=== PATIENT | male | born 1970 | race Caucasian/White ===

== ENCOUNTER 2019-10-13 08:59 | Emergency (ER) | payer OTHER ==
[2019-10-13] MEDS ORDERED: Lidocaine 1% with EPINEPHrine 1:100,000 10 ML MDV INJECT ONE (09:11)
[2019-10-13] MEDS ORDERED: Diphtheria,Pertussis(Acell),Tetanus Vaccine 0.5 ML Syringe IM ONE (09:11)
--- NOTE | 2019-10-13 09:26 | EDM.PDOC ---
ED HPI GENERAL MEDICAL PROBLEM - General Chief Complaint: Laceration Stated Complaint: RIGHT ARM LAC Time Seen by Provider: 10/13/19 09:05 Source of Information: Reports: Patient History Limitations: Reports: No Limitations - History of Present Illness INITIAL COMMENTS - FREE TEXT/NARRATIVE: The patient presents with a right arm laceration. He tripped and fell in his shop and fell and cut his right forearm. He denies any other injury. He thinks his tetanus is not up to date. Onset: Sudden Duration: Minutes: Location: Reports: Upper Extremity, Right (forearm) Quality: Reports: Sharp Severity: Moderate Improves with: Reports: None Worsens with: Reports: None Associated Symptoms: Reports: No Other Symptoms Right Arm Pain Score (Numeric/FACES): 4 - Related Data Allergies Allergy/AdvReac Type Severity Reaction Status Date / Time No Known Allergies Allergy Verified 10/13/19 09:09 Home Meds: Home Meds . [No Known Home Meds] 10/13/19 [History] ED ROS GENERAL - Review of Systems Review Of Systems: See Below Constitutional: Reports: No Symptoms HEENT: Reports: No Symptoms Respiratory: Reports: No Symptoms Cardiovascular: Reports: No Symptoms Endocrine: Reports: No Symptoms GI/Abdominal: Reports: No Symptoms : Reports: No Symptoms Musculoskeletal: Reports: Other (10 cm laceration to the right forearm) ED EXAM, SKIN/RASH Exam: See Below Exam Limited By: No Limitations General Appearance: Alert, No Apparent Distress Ears: Normal External Exam Nose: Normal Inspection Head: Atraumatic, Normocephalic Neck: Normal Inspection Respiratory/Chest: No Respiratory Distress, Lungs Clear, Normal Breath Sounds Cardiovascular: Regular Rate, Rhythm, No Edema, No Murmur GI/Abdominal: Soft, Non-Tender, No Organomegaly, No Mass Back Exam: Normal Inspection Extremities: Other (10 cm laceration to the right forearm. Good sensation and pulses distally.) ED SKIN PROCEDURES - Laceration/Wound Repair Right Arm Appearance: Subcutaneous, Linear, Clean Distal NVT: Neuro & Vascular Intact, No Tendon Injury Anesthetic Type: Local Local Anesthesia - Lidocaine (Xylocaine): 1% with EPI Skin Prep: Saline Exploration/Debridement/Repair: Wound Explored, In a Bloodless Field, Explored to Base Closed with: Sutures Lac/Wound length In cm: 10 Suture Size: 3-0 # of Sutures: 7 Suture Type: Nylon, Interrupted, Mattress Tetanus Status Addressed: Yes Complications: No Course - Vital Signs Last Recorded V/S: Last Vital Signs Temp 97.8 F 10/13/19 09:07 Pulse 73 10/13/19 09:07 Resp 16 10/13/19 09:07 BP 155/77 H 10/13/19 09:07 Pulse Ox 100 10/13/19 09:07 - Orders/Labs/Meds Orders: Active Orders 24 hr Category Date Time Status Vaccines to be Administered [RC] PER UNIT ROUTINE Care 10/13/19 09:11 Active Meds: Medications Discontinued Medications Generic Name Dose Route Start Last Admin Trade Name Fretwyla PRN Reason Stop Dose Admin Diphtheria/Tetanus/Acell Pertussis 0.5 ml 10/13/19 09:11 10/13/19 09:35 Adacel IM 10/13/19 09:12 0.5 ml .ONCE ONE Administration Lidocaine/Epinephrine 10 ml 10/13/19 09:11 10/13/19 09:35 Xylocaine 1% With Epinephrine 1:100,000 INJECT 10/13/19 09:12 10 ml ONETIME ONE Administration - Re-Assessments/Exams Free Text/Narrative Re-Assessment/Exam: 10/13/19 09:26 I updated his tetanus and I will suture his arm. 10/13/19 10:00 I sutures his arm. I will discharge him home. Departure - Departure Time of Disposition: 10:00 Disposition: Home, Self-Care 01 Condition: Good Clinical Impression: Laceration of right forearm Qualifiers: Encounter type: initial encounter Qualified Code(s): S51.811A - Laceration without foreign body of right forearm, initial encounter - Discharge Information *PRESCRIPTION DRUG MONITORING PROGRAM REVIEWED*: Not Applicable *COPY OF PRESCRIPTION DRUG MONITORING REPORT IN PATIENT ADIN: Not Applicable Referrals: PCP,None [Primary Care Provider] - Amanda Flanagan PA-C [Physician Academic Support Coordinator] - 1 Week Forms: ED Department Discharge Additional Instructions: Clean the wound with warm soapy water 2 times per day and apply antibiotic ointment after. Have the sutures removed in 7 to 10 days. Look for any signs of infection such as redness, swelling, pain or drainage. If you see any of these signs please return or see your doctor. You may need oral antibiotics. Sepsis Event Note - Evaluation Sepsis Screening Result: No Definite Risk - Focused Exam Vital Signs: Vital Signs Temp Pulse Resp BP Pulse Ox 10/13/19 09:07 97.8 F 73 16 155/77 H 100 Date Exam was Performed: 10/13/19 Time Exam was Performed: 09:59 - My Orders Last 24 Hours: My Active Orders 10/13/19 09:11 Vaccines to be Administered [RC] PER UNIT ROUTINE - Assessment/Plan Last 24 Hours: My Active Orders 10/13/19 09:11 Vaccines to be Administered [RC] PER UNIT ROUTINE
== END 2019-10-13 10:50 | disposition home or self-care (01) ==
LOC: JD.ED 08:59
DX: S51.811A Laceration without foreign body of right forearm, initial encounter (principal); Z23 Encounter for immunization; W01.0XXA Fall on same level from slipping, tripping and stumbling without subsequent striking against object, initial encounter; W45.8XXA Other foreign body or object entering through skin, initial encounter
CPT/HCPCS: 12004; 90471; 90715; 99282